=== PATIENT | male | born 1965 | race Caucasian/White ===

== ENCOUNTER 2016-12-10 06:26 | Emergency (ER) | payer BC ==
[~2016-12-10] VITALS: Ht 185.4 cm; Wt 108.6 kg
[2016-12-10 06:31] VITALS: BP 127/77; PULSE 55; TEMP 98
[2016-12-10] MEDS ORDERED: ZIAC 5/6.25MG T1 TAB PO (06:33)
[2016-12-10] MEDS ORDERED: VOLTAREN 75 DR75 MG PO (07:41)
[2016-12-10] MEDS ORDERED: NORCO 325 MG-51 TAB PO (07:41)
== END 2016-12-10 08:15 | disposition home or self-care (01) ==
LOC: COL.ER 06:26
DX: S82.832A Other fracture of upper and lower end of left fibula, initial encounter for closed fracture (principal); I10 Essential (primary) hypertension; X50.0XXA Overexertion from strenuous movement or load, initial encounter; Y92.009 Unspecified place in unspecified non-institutional (private) residence as the place of occurrence of the external cause